=== PATIENT | female | born 1945 | race Caucasian/White ===

== ENCOUNTER 2019-09-22 17:48 | Emergency (ER) | payer OTHER ==
[~2019-09-22] VITALS: Ht 160 cm; Wt 68.5 kg
[~2019-09-22 17:48] MED LIST: CLEOCIN HCL300 MG PO; HYZAAR 100-121 UDTAB; KETO10TA2 PO; METOPROLOL SUCC25 MG
[2019-09-22] MEDS ORDERED: NORVASC5 MG (18:36)
[2019-09-22] MEDS ORDERED: SINGULAIR10 MG (18:36)
== END 2019-09-23 14:51 | disposition home or self-care (01) ==
LOC: ER 17:48
DX: J45.909 Unspecified asthma, uncomplicated (principal); I16.0 Hypertensive urgency; I10 Essential (primary) hypertension

== ENCOUNTER 2020-01-17 14:35 | Outpatient (CLI) | payer OTHER ==
[~2020-01-17 14:35] MED LIST changes: +NORVASC5 MG; +SINGULAIR10 MG
== END 2020-01-17 14:40 | disposition home or self-care (01) ==
LOC: LAB 14:35
DX: J11.1 Influenza due to unidentified influenza virus with other respiratory manifestations (principal); J44.1 Chronic obstructive pulmonary disease with (acute) exacerbation

== ENCOUNTER 2020-09-02 10:51 | Emergency (ER) | payer OTHER ==
[~2020-09-02] VITALS: Ht 160 cm; Wt 68.0 kg
[2020-09-02] MEDS ORDERED: ONGLYZA2.5 MG (11:11)
== END 2020-09-02 21:35 | disposition home or self-care (01) ==
LOC: ER 10:51
DX: J20.9 Acute bronchitis, unspecified (principal); Z03.818 Encounter for observation for suspected exposure to other biological agents ruled out; R06.02 Shortness of breath

== ENCOUNTER → 2021-03-10 07:00 | Outpatient (CLI) | payer OTHER ==
[~2021-03-10 07:00] MED LIST changes: +KOMBIGLYZE XR1 EACH PO; +LEVALBUTEROL TA15 GM IH; +LOSARTAN POTAS100 MG PO; +METOPROLOL SUCC50 MG PO; +ONGLYZA2.5 MG
== END | disposition home or self-care (01) ==
LOC: LAB 07:00
PROVIDERS: ATTEND Internal Medicine Cardiovascular Disease
DX: I10 Essential (primary) hypertension (principal); E11.9 Type 2 diabetes mellitus without complications; E03.8 Other specified hypothyroidism; E78.2 Mixed hyperlipidemia; Z12.11 Encounter for screening for malignant neoplasm of colon; E55.9 Vitamin D deficiency, unspecified

== ENCOUNTER 2021-03-10 08:55 | Outpatient (CLI) | payer OTHER ==
[~2021-03-10 08:55] MED LIST changes: -KOMBIGLYZE XR1 EACH PO; -LEVALBUTEROL TA15 GM IH; -LOSARTAN POTAS100 MG PO; -METOPROLOL SUCC50 MG PO
== END 2021-03-10 09:33 | disposition home or self-care (01) ==
LOC: MAMO-SONO 08:55
PROVIDERS: ATTEND Internal Medicine Cardiovascular Disease
DX: Z12.31 Encounter for screening mammogram for malignant neoplasm of breast (principal); Z87.898 Personal history of other specified conditions; N63.11 Unspecified lump in the right breast, upper outer quadrant; J44.9 Chronic obstructive pulmonary disease, unspecified

== ENCOUNTER 2021-03-10 10:46 | Outpatient (CLI) | payer OTHER | END 2021-03-10 10:47 | disposition home or self-care (01) | LOC: NUCLEAR 10:46 | PROVIDERS: ATTEND Internal Medicine Cardiovascular Disease | DX: M81.0 Age-related osteoporosis without current pathological fracture (principal); E55.9 Vitamin D deficiency, unspecified ==

== ENCOUNTER 2021-03-29 14:18 | Emergency (ER) | payer OTHER ==
[~2021-03-29] VITALS: Ht 162.6 cm; Wt 64.4 kg
[2021-03-29] MEDS ORDERED: LOSARTAN POTAS100 MG PO (14:39)
[2021-03-29] MEDS ORDERED: KOMBIGLYZE XR1 EACH PO (14:39)
[2021-03-29] MEDS ORDERED: METOPROLOL SUCC50 MG PO (14:39)
[2021-03-29] MEDS ORDERED: LEVALBUTEROL TA15 GM IH (14:39)
== END 2021-03-29 21:28 | disposition home or self-care (01) ==
LOC: ER 14:18
DX: K62.89 Other specified diseases of anus and rectum (principal); K62.5 Hemorrhage of anus and rectum; K80.80 Other cholelithiasis without obstruction; K57.30 Diverticulosis of large intestine without perforation or abscess without bleeding; N28.1 Cyst of kidney, acquired

== ENCOUNTER 2021-06-17 08:36 | Emergency (ER) | payer OTHER ==
[~2021-06-17] VITALS: Ht 154.9 cm; Wt 68.0 kg
[~2021-06-17 08:36] MED LIST changes: +KOMBIGLYZE XR1 EACH PO; +LEVALBUTEROL TA15 GM IH; +LOSARTAN POTAS100 MG PO; +METOPROLOL SUCC50 MG PO
[2021-06-17] MEDS ORDERED: MUPIROCIN1 G1 TOP (09:17)
[2021-06-17] MEDS ORDERED: AMOX1TAB5 PO (09:17)
== END 2021-06-17 10:16 | disposition home or self-care (01) ==
LOC: ER 08:36
DX: S60.311A Abrasion of right thumb, initial encounter (principal); W26.0XXA Contact with knife, initial encounter; Y93.89 Activity, other specified; Y92.090 Kitchen in other non-institutional residence as the place of occurrence of the external cause; Y99.8 Other external cause status

== ENCOUNTER 2021-06-18 07:23 | Outpatient (CLI) | payer OTHER ==
[~2021-06-18 07:23] MED LIST changes: +AMOX1TAB5 PO; +MUPIROCIN1 G1 TOP
== END 2021-06-18 07:27 | disposition home or self-care (01) ==
LOC: LAB 07:23
DX: Z03.818 Encounter for observation for suspected exposure to other biological agents ruled out (principal)

== ENCOUNTER 2022-03-24 07:23 | Outpatient (CLI) | payer OTHER | END 2022-03-24 07:30 | disposition home or self-care (01) | LOC: RAD 07:23 | PROVIDERS: ATTEND Orthopaedic Surgery | DX: S92.331D Displaced fracture of third metatarsal bone, right foot, subsequent encounter for fracture with routine healing (principal); S92.344D Nondisplaced fracture of fourth metatarsal bone, right foot, subsequent encounter for fracture with routine healing ==

== ENCOUNTER 2022-05-06 11:10 | Outpatient (CLI) | payer OTHER | END 2022-05-06 11:16 | disposition home or self-care (01) | LOC: RAD 11:10 | PROVIDERS: ATTEND Orthopaedic Surgery | DX: M25.551 Pain in right hip (principal); M25.552 Pain in left hip; M25.561 Pain in right knee; M25.562 Pain in left knee ==

== ENCOUNTER 2022-05-07 08:12 | Outpatient (CLI) | payer OTHER | END 2022-05-07 08:19 | disposition home or self-care (01) | LOC: LAB 08:12 | PROVIDERS: ATTEND Orthopaedic Surgery | DX: E21.3 Hyperparathyroidism, unspecified (principal) ==

== ENCOUNTER 2022-05-10 08:03 | Outpatient (CLI) | payer OTHER | END 2022-05-10 08:35 | disposition home or self-care (01) | LOC: RAD 08:03 | PROVIDERS: ATTEND Orthopaedic Surgery | DX: S92.331A Displaced fracture of third metatarsal bone, right foot, initial encounter for closed fracture (principal); S92.341D Displaced fracture of fourth metatarsal bone, right foot, subsequent encounter for fracture with routine healing ==

== ENCOUNTER 2022-11-22 07:13 | Outpatient (CLI) | payer OTHER | END 2022-11-22 07:20 | disposition home or self-care (01) | LOC: RAD 07:13 | PROVIDERS: ATTEND Orthopaedic Surgery | DX: M25.512 Pain in left shoulder (principal) ==

== ENCOUNTER → 2023-02-03 | Outpatient (CLI) | payer OTHER | END | disposition home or self-care (01) | LOC: RAD 08:18 | PROVIDERS: ATTEND Orthopaedic Surgery | DX: M17.11 Unilateral primary osteoarthritis, right knee (principal) ==

== ENCOUNTER 2025-05-28 09:20 | Outpatient (CLI) | payer OTHER | END 2025-05-28 09:23 | disposition home or self-care (01) | LOC: NUCLEAR 09:20 | PROVIDERS: ATTEND Internal Medicine Cardiovascular Disease | DX: G30.9 Alzheimer's disease, unspecified (principal) | CPT/HCPCS: 78803; A9557 ==

== ENCOUNTER 2025-07-17 09:55 | Outpatient (CLI) | payer OTHER | END 2025-07-17 10:01 | disposition home or self-care (01) | LOC: TOM 09:55 | PROVIDERS: ATTEND Internal Medicine Cardiovascular Disease | DX: M46.47 Discitis, unspecified, lumbosacral region (principal); M19.90 Unspecified osteoarthritis, unspecified site; R51.9 Headache, unspecified ==